=== PATIENT | female | born 1955 | race Caucasian/White ===

== ENCOUNTER 2022-12-18 11:09 | Emergency (ER) | payer MEDICARE, BC ==
[~2022-12-18] VITALS: Ht 162.6 cm; Wt 99.8 kg
[~2022-12-18 11:09] MED LIST: GABA600 PO; MECL25 PO; ONDA4ODT MM
[2022-12-18] MEDS ORDERED: FURO40 PO (11:27)
[2022-12-18] MEDS ORDERED: ONDA4ODT MM (16:29)
[2022-12-18] MEDS ORDERED: MECL25 PO (16:29)
[2022-12-18 16:30] VITALS: BP 189/99
== END 2022-12-18 18:27 | disposition home or self-care (01) ==
LOC: ER 11:09
DX: R42 Dizziness and giddiness (principal); Z88.2 Allergy status to sulfonamides; Z88.5 Allergy status to narcotic agent; Z79.899 Other long term (current) drug therapy; J45.909 Unspecified asthma, uncomplicated
CPT/HCPCS: 93005; 93010; A9270; J2765

== ENCOUNTER 2024-05-24 14:35 | Emergency (ER) | payer MEDICARE, BC ==
[~2024-05-24] VITALS: Ht 149.9 cm; Wt 106.1 kg
[~2024-05-24 14:35] MED LIST changes: +FURO40 PO
[2024-05-24 15:21] LABS: BASOPHILS ABSOLUTE AUTO 0.03 K/mm3 (0.00-0.23); BASOPHILS PERCENT AUTO 0 % (0-2); EOSINOPHILS ABSOLUTE AUTO 0.07 K/mm3 (0.00-0.68); EOSINOPHILS PERCENT AUTO 1 % (0-6); Hematocrit 38.7 % (33.0-51.0); Hemoglobin 13.6 g/dL (11.5-16.0); IMMATURE GRAN ABSOLUTE AUTO 0.04 K/mm3 (0.00-0.10); IMMATURE GRAN PERCENT AUTO 1 % (0-1); LYMPHOCYTES ABSOLUTE AUTO 3.28 K/mm3 (0.84-5.20); LYMPHOCYTES PERCENT AUTO 38 % (21-46); MONOCYTES ABSOLUTE AUTO 0.71 K/mm3 (0.16-1.47); MONOCYTES PERCENT AUTO 8 % (4-13); Mean Corpuscular HGB 33.6 pg (26.0-34.0); Mean Corpuscular HGB Conc 35.1 g/dL (31.5-36.5); Mean Corpuscular Volume 96 fL (80-100); Mean Platelet Volume 9.5 fL (9.1-12.4); NEUTROPHILS ABSOLUTE AUTO 4.47 K/mm3 (1.96-9.15); NEUTROPHILS PERCENT AUTO 52 % (41-73); Platelet Count 264 K/mm3 (150-400); RDW Coefficient Variation 11.9 % (11.7-14.2); RDW Standard Deviation 41.6 fL (35.1-46.3); Red Blood Cell Count 4.05 M/mm3 (3.80-5.20)
[2024-05-24 15:55] LABS: Albumin, Blood 3.7 g/dL (3.4-5.0); Bilirubin, Total 0.6 mg/dL (0.1-1.0); Bun/Creatinine Ratio 13.1 (12.0-20.0); Calcium, Blood 9.4 mg/dL (8.5-10.1); Creatinine, Blood 0.99 mg/dL (0.40-1.00); Globulin, Blood 3.8 g/dL (2.2-4.0); Total Protein, Blood 7.5 g/dL (6.4-8.2)
[2024-05-24] MEDS ORDERED: CELE100 PO (19:59)
[2024-05-24] MEDS ORDERED: DiphenhydrAMINE HCl 50 MG/ML 1ML Vial IV ONE (20:35)
[2024-05-24] MEDS ORDERED: Ketorolac Tromethamine 15mg Vial IV ONE (20:35)
[2024-05-24] MEDS ORDERED: Acetaminophen 500 MG Tab PO ONE (20:35)
[2024-05-24] MEDS ORDERED: Dexamethasone Sod Phos 10 MG/ML 1ML VIAL PO ONE (20:35)
[2024-05-24] MEDS ORDERED: Metoclopramide HCl 5MG / ML 2ML Vial IV ONE (20:35)
[2024-05-24 21:29] LABS: C-Reactive Protein, High Sens. 7.55 mg/dL (0.000-3.000)
[2024-05-24] MEDS ORDERED: Tetracaine HCl/Pf 0.5% Opth Soln 4 ml RIGHTEYE ONE (21:40)
[2024-05-24 22:30] VITALS: BP 179/105
== END 2024-05-24 23:03 | disposition home or self-care (01) ==
LOC: ER 14:35
PROVIDERS: Physician Assistant
DX: R51.9 Headache, unspecified (principal); I10 Essential (primary) hypertension; H21.89 Other specified disorders of iris and ciliary body; J45.909 Unspecified asthma, uncomplicated; Z79.899 Other long term (current) drug therapy; Z88.2 Allergy status to sulfonamides; Z88.5 Allergy status to narcotic agent; Z88.8 Allergy status to other drugs, medicaments and biological substances
CPT/HCPCS: 70450; 70496; 80053; 85025; 85651; 86141; 96374-59; 96375; 99284-25; A9270; J1100; J1200; J1885; J2765; Q9967

== ENCOUNTER 2024-09-02 21:45 | Observation (INO) | payer MEDICARE, BC ==
[~2024-09-02] VITALS: Ht 149.9 cm; Wt 103.9 kg
[~2024-09-02 21:45] MED LIST changes: +CELE100 PO
[2024-09-02 22:03] LABS: BASOPHILS ABSOLUTE AUTO 0.02 K/mm3 (0.00-0.23); BASOPHILS PERCENT AUTO 0 % (0-2); EOSINOPHILS ABSOLUTE AUTO 0.03 K/mm3 (0.00-0.68); EOSINOPHILS PERCENT AUTO 0 % (0-6); Hematocrit 38.8 % (33.0-51.0); Hemoglobin 13.3 g/dL (11.5-16.0); IMMATURE GRAN ABSOLUTE AUTO 0.04 K/mm3 (0.00-0.10); IMMATURE GRAN PERCENT AUTO 1 % (0-1); LYMPHOCYTES ABSOLUTE AUTO 1.76 K/mm3 (0.84-5.20); LYMPHOCYTES PERCENT AUTO 21 % (21-46); MONOCYTES ABSOLUTE AUTO 0.66 K/mm3 (0.16-1.47); MONOCYTES PERCENT AUTO 8 % (4-13); Mean Corpuscular HGB 33.7 pg (26.0-34.0); Mean Corpuscular HGB Conc 34.3 g/dL (31.5-36.5); Mean Corpuscular Volume 98 fL (80-100); NEUTROPHILS PERCENT AUTO 70 % (41-73); Platelet Count 213 K/mm3 (150-400); RDW Coefficient Variation 11.9 % (11.7-14.2); RDW Standard Deviation 42.9 fL (35.1-46.3); Red Blood Cell Count 3.95 M/mm3 (3.80-5.20); White Blood Cell Count 8.31 K/mm3 (4.00-11.30)
[2024-09-02 22:20] LABS: Albumin, Blood 3.5 g/dL (3.4-5.0); Bilirubin, Total 0.2 mg/dL (0.1-1.0); Bun/Creatinine Ratio 19.6 (12.0-20.0); Calcium, Blood 9.5 mg/dL (8.5-10.1); Creatinine, Blood 1.07 mg/dL (0.40-1.00); Globulin, Blood 3.6 g/dL (2.2-4.0); Total Protein, Blood 7.1 g/dL (6.4-8.2)
[2024-09-03] MEDS ORDERED: Aspirin 325 MG Tab PO ONE (00:15)
[2024-09-03] MEDS ORDERED: Ondansetron HCl 2 MG / ML 2ML Vial IV PRN (00:35)
[2024-09-03] MEDS ORDERED: FLU VACC TS2024-25(6MOS UP)/PF 45 MCG/0.5 ML SYRINGE IM ONE (00:35)
[2024-09-03] MEDS ORDERED: Clopidogrel Bisulfate 75 MG Tab PO SCH (01:00)
[2024-09-03] MEDS ORDERED: Atorvastatin 40 MG Tab PO SCH (01:00)
[2024-09-03] MEDS ORDERED: GABA400 PO (01:17)
[2024-09-03 02:23] VITALS: BP 168/94
--- NOTE | 2024-09-03 02:49 | NUR ---
ADMIT NOTE 69 YR OLD FEMALE ADMITTED TO FLOOR FROM THE ED WITH DX OF STROKE. ED RN REPORTED BROUGHT IN BY ANBULANCE AFTER SHE WAS HAVING SLURRED SPEECH ANAD UNSTEADY GAIT. IN THE ED HAD HEAD CT - NO NOTED OUTSTANDING RESULTS (SEE CT /IMAGING RESULTS). IN THE ED SUPERVISOR RIDE ASSEMBLY WERE EQUAL AND SPEECH WAS NORMAL. UPON ARRIVAL AT FLOOR, SPEECH NORMAL, ALERT AND ORIENTED TO QUESTIONS ASKED. PIVOTS TO BED WITHOUT NOTED DIFFICULTIES. NEURO CHECK DONE. INSTRUCTED ON HOW TO USE CALL LIGHT AND BED CONTROL. AGREES TO USE CALL LIGHT IF NEEDS TO GET OOB. HOB ELEVATED FOR COMFORT. BP 168/94 OTHERWISE VSS. BP TRENDING DOWN FROM THAT WAS RECORDED EARLIER IN THE ED. DENIES LOSS OF FEELING IN ALL PARTS OF BODY. AGREES TO NOTIFY STAFF IF S/S CHANGE. WILL CONT TO MONITOR.
--- NOTE | 2024-09-03 03:25 | NUR ---
MEASURING MACHINE TENDER SUMMARY ADMITTED EARLIER IN THE SHIFT WITH DX OF STROKE. BP ELEVATED, BUT TRENDING DOWN, OTHERWISE VSS. NEURO CHECKS IN PROCESS. NO NOTED SLURRED SPEECH. BILAT DOCK ASSOCIATE EQUAL AND STRONG. BILAT PLANTAR AND DORSI FLEXIONS EQUAL AND STRONG. DENIES LOSS OF FEELING. VERBAL RESPONSE APPROPRIATE. PUPILS EQUAL, SLOW TO RESPOND TO LIGHT. NPO PER MD ORDER. MOIST MOUTH SWABS IN REACH FOR ORAL CARE. RESTING QUIETLY WITH CALL LIGHT IN REACH. ABLE TO REPOSITION SELF IN BED WITHOUT ASSIST. AGREES TO USE CALL LIGHT IF NEED OOB. WILL CONT TO MONITOR/ASSSESS
[2024-09-03 05:54] VITALS: BP 171/84
[2024-09-03 07:04] LABS: Albumin, Blood 3.4 g/dL (3.4-5.0); Bilirubin, Total 0.3 mg/dL (0.1-1.0); Bun/Creatinine Ratio 20.2 (12.0-20.0); Calcium, Blood 9.4 mg/dL (8.5-10.1); Creatinine, Blood 0.89 mg/dL (0.40-1.00); Globulin, Blood 3.5 g/dL (2.2-4.0); Total Protein, Blood 6.9 g/dL (6.4-8.2)
[2024-09-03 08:02] VITALS: BP 185/102
[2024-09-03 08:35] LABS: BASOPHILS ABSOLUTE AUTO 0.03 K/mm3 (0.00-0.23); BASOPHILS PERCENT AUTO 0 % (0-2); EOSINOPHILS ABSOLUTE AUTO 0.06 K/mm3 (0.00-0.68); EOSINOPHILS PERCENT AUTO 1 % (0-6); Hematocrit 39.7 % (33.0-51.0); IMMATURE GRAN ABSOLUTE AUTO 0.02 K/mm3 (0.00-0.10); IMMATURE GRAN PERCENT AUTO 0 % (0-1); LYMPHOCYTES ABSOLUTE AUTO 2.94 K/mm3 (0.84-5.20); LYMPHOCYTES PERCENT AUTO 41 % (21-46); MONOCYTES ABSOLUTE AUTO 0.57 K/mm3 (0.16-1.47); MONOCYTES PERCENT AUTO 8 % (4-13); Mean Corpuscular HGB 33.2 pg (26.0-34.0); Mean Corpuscular HGB Conc 32.7 g/dL (31.5-36.5); Mean Corpuscular Volume 101 fL (80-100); Mean Platelet Volume 9.6 fL (9.1-12.4); NEUTROPHILS ABSOLUTE AUTO 3.57 K/mm3 (1.96-9.15); NEUTROPHILS PERCENT AUTO 50 % (41-73); Platelet Count 229 K/mm3 (150-400); RDW Standard Deviation 44.9 fL (35.1-46.3); Red Blood Cell Count 3.92 M/mm3 (3.80-5.20); White Blood Cell Count 7.19 K/mm3 (4.00-11.30)
[2024-09-03] MEDS ORDERED: Gabapentin 300 MG Cap PO SCH (09:00)
[2024-09-03] MEDS ORDERED: Enoxaparin 40 MG/0.4 ML SYR SC SCH (09:00)
--- NOTE | 2024-09-03 10:37 | NUR ---
CALL TO DR MEEKS: OKAY TO CANCEL ST EVAL AND DC NPO AND CHANGE TO HH DIET.
[2024-09-03 12:11] VITALS: BP 175/95
[2024-09-03] MEDS ORDERED: AmLODIPine Besylate 5 MG Tab PO SCH (14:00)
[2024-09-03] MEDS ORDERED: Aspir 8181 MG PO (14:35)
[2024-09-03] MEDS ORDERED: AMLO5 PO (14:36)
[2024-09-03] MEDS ORDERED: CLOP75 PO (14:37)
[2024-09-03] MEDS ORDERED: ATOR80 PO (14:37)
[2024-09-03 15:24] LABS: Source, Urine Clean Catch
[2024-09-03 15:47] LABS: Appearance, Urine Clear (Clear); Bilirubin, Urine Neg (Neg); Blood, Urine Neg (Neg); Color, Urine Yellow (P-Yellow); Glucose Qualitative, Urine Neg (Neg); Ketones, Urine Neg (Neg); Leukocyte Esterase, Urine 1+ (Neg); Nitrite, Urine Neg (Neg); Protein, Urine Neg (Neg); Specific Gravity, Urine 1.015 (1.003-1.022); Urobilinogen, Urine NORM (Normal)
[2024-09-03 16:06] LABS: Bacteria Mod /hpf; Red Blood Cells, Urine Not Seen /hpf (0-2); Squamous Epithelial Cells Mod /hpf (Few)
--- NOTE | 2024-09-03 16:24 | NUR ---
DISCHARGE SUMMARY: A&Ox4. PLEASANT AND COOPERATIVE WITH CARE. CALLS APPROPRIATELY AND IS ABLE TO ADVOCATE NEEDS EFFECTIVELY. AMBULATES c SBA TO BATHROOM DUE TO SOME SLIGHT UNSTEADINESS ON FEET; NO CONCERNS PER PT. CONTINENT OF BOWEL AND BLADDER. UA OBTAINED AND SENT TO LAB; CULTURE PENDING. MEDS WHOLE c FLUIDS. TELE SINUS. NO C/O PAIN OR DISCOMFORT THIS SHIFT. ADDITION OF AMLODIPINE 5MG QD FOR HYPERTENSION; NO ASE NOTED AFTER ONE HOUR OF ADMINISTRATION. MEDICATIONS FAXED TO [facility] ON [address]. INSTRUCTED TO FOLLOW-UP WITH DR. HERNÁNDEZ WITHIN ONE WEEK; CALL TOMORROW TO SCHEDULE. IV REMOVED BY SN PAULA. LEFT FLOOR AT WITH ALL BELONGINGS AND DISCHARGE PACKET VIA WHEELCHAIR, ESCORTED BY FRIEND, PROVIDING TRANSPORTATION.
[2024-09-04] MEDS ORDERED: Aspirin 81 MG Chew PO SCH ×2 (09:00)
== END 2024-09-03 15:58 | disposition home or self-care (01) ==
LOC: ER 21:45 → MEDS 21:46
PROVIDERS: Student in an Organized Health Care Education/Training Program; ADMIT Internal Medicine
DX: I63.9 Cerebral infarction, unspecified (principal); I10 Essential (primary) hypertension; J45.909 Unspecified asthma, uncomplicated; M06.9 Rheumatoid arthritis, unspecified; Z79.82 Long term (current) use of aspirin; Z79.899 Other long term (current) drug therapy; E78.5 Hyperlipidemia, unspecified; Z88.2 Allergy status to sulfonamides; Z88.5 Allergy status to narcotic agent; Z88.8 Allergy status to other drugs, medicaments and biological substances
CPT/HCPCS: 36415; 70450; 70496; 70498; 80053; 81001; 85025; 87086; 93005; 93010; 93306; 96372; 97112; 97162; 99285-25; A9270; G0378; J1650; Q9967